=== PATIENT | female | born 1955 | race Caucasian/White ===

== ENCOUNTER 2016-09-09 21:51 | Emergency (ER) | payer MEDICARE, MEDICAID ==
[2016-09-09] MEDS ORDERED: IOPAMIDOL-300 100 ML VIAL IVP ONE (23:28)
== END 2016-09-10 00:06 | disposition home or self-care (01) ==
DX: K59.00 Constipation, unspecified (principal); I10 Essential (primary) hypertension; E11.9 Type 2 diabetes mellitus without complications; E03.9 Hypothyroidism, unspecified; Z85.3 Personal history of malignant neoplasm of breast; M06.9 Rheumatoid arthritis, unspecified; M19.90 Unspecified osteoarthritis, unspecified site; Z79.82 Long term (current) use of aspirin
CPT/HCPCS: 36415; 74177; 80053; 81001; 83690; 85025; 87086; 99283; 99284; Q9967

== ENCOUNTER 2016-10-09 11:36 | Outpatient (CLI) | payer MEDICARE, MEDICAID ==
--- NOTE | 2016-10-09 20:03 | XRAY Report ---
BILATERAL KNEES, THREE-VIEW OF EACH KNEE: 10/09/2016 CLINICAL HISTORY: Knee pain. FINDINGS: LEFT KNEE: Prominent medial periarticular spur is noted emanating from the tibial plateau. Mild spu rring is noted at the tibial spines. Moderate degree of medial joint space narrowing is noted. Mild varus deformity is seen. Examination is negative for knee effusion. RIGHT KNEE: Prominent spur is seen emanating from the medial aspect of the tibial plateau. Mild spu rring is noted at the tibial spines. Mild spurring is noted along the posterior aspect of the patell a and anterior superior aspect of the patella. Moderate degree of joint space narrowing is noted wit h mild varus deformity. Small bony ossicle is noted in the posterior soft tissues of the right knee measuring 0.6 cm. This most likely represents a normal accessory ossicle. Examination is negative for knee effusion. IMPRESSION: 1. OSTEOARTHRITIS OF THE LEFT KNEE IS NOTED PRIMARILY AFFECTING THE MEDIAL FEMORAL COMPARTMENT. 2. OSTEOARTHRITIS OF THE RIGHT KNEE, ESPECIALLY AFFECTING THE MEDIAL FEMORAL COMPARTMENT. ASSOCIATE D MILD VARUS DEFORMITY IS NOTED. JOB #: [id number] EXT JOB #:[id number]
--- NOTE | 2016-10-13 08:38 | XRAY Report ---
EXAM: LUMBOSACRAL SPINE RADIOGRAPHY EXAM DATE: 10/09/2016 12:09 PM. CLINICAL HISTORY: Lumbar disk disease. COMPARISONS: CT scan of the abdomen and pelvis 09/09/2016. MRI of the lumbar spine 05/04/2014. Lumbar spine plain films 11/01/2012. TECHNIQUE: 5 views. FINDINGS: Alignment: Mild, 13 degree, levorotatory scoliosis is seen centered at L3. Mild left lateral subluxat ion of L3 is seen in relation to L4. Grade 1, 6 mm, spondylolisthesis is seen at L5-S1. Bones: Five pki-wid-hpyugps lumbar vertebral bodies are present. No fractures or bone lesions. Disks: Moderate loss of disk space height and vacuum cleft phenomenon is noted at L3-L4 and L4-L5. Pa tchy osteophyte formation is noted. Facets: Hypertrophic degenerative facet change is seen in the lower lumbar spine. This predominates o n the right at L5-S1 with moderate change on the left at L5-S1 and bilaterally at L4-L5. Sacroiliac Joints: Unremarkable. Soft Tissues: Moderate amount of gas and stool is seen throughout the colon. IMPRESSION: 1. Levorotatory scoliosis of the lower lumbar spine. Mild left lateral subluxation is seen at L3-L4. Mild spondylolisthesis is seen at L5-S1. 2. Moderate to marked degenerative facet change at L5-S1. 3. Degenerative disk and facet change at L4-L5. 4. Degenerative disk change at L3-L4. [facility] Referring Provider Line: [phone] SITE ID: [id number]
== END 2016-10-09 11:37 | disposition home or self-care (01) ==
LOC: DI.S 11:36
PROVIDERS: ATTEND Nurse Practitioner Family
DX: M51.36 Other intervertebral disc degeneration, lumbar region (principal); M47.896 Other spondylosis, lumbar region; M43.17 Spondylolisthesis, lumbosacral region; M47.897 Other spondylosis, lumbosacral region; M17.0 Bilateral primary osteoarthritis of knee
CPT/HCPCS: 72110

== ENCOUNTER 2016-10-16 16:36 | Outpatient (CLI) | payer MEDICARE, MEDICAID ==
[2016-10-16 13:36] LABS: ALBUMIN/GLOBULIN RATIO 1.4 (1.0-2.2); BILIRUBIN,TOTAL 0.5 mg/dL (0.2-1.0); BUN - BLOOD UREA NITROGEN 12 mg/dL (6-20); CALCIUM 9.8 mg/dL (8.5-10.3); CARBON DIOXIDE - CO2 27 mmol/L (21-32); CHLORIDE 100 mmol/L (101-111); CHOL/HDL RATIO 2.8 (<4.4); CHOLESTEROL 247 mg/dL; CREATININE 0.9 mg/dL (0.4-1.0); GFR - MDRD 64 (>89); GLUCOSE 130 mg/dL (70-100); HDL CHOLESTEROL 88 mg/dL; LDL/HDL RATIO 1.1 (<4.4); POTASSIUM 4.2 mmol/L (3.5-5.0); SODIUM 137 mmol/L (135-145); TOTAL PROTEIN 7.4 g/dL (6.7-8.2); TRIGLYCERIDES 290 mg/dL; VLDL CHOLESTEROL 58 mg/dL
[2016-10-16 14:01] LABS: HEMOGLOBIN A1C 0.66 g/dL
== END 2016-10-16 16:37 | disposition home or self-care (01) ==
LOC: LAB.WCP 16:36
PROVIDERS: ATTEND Nurse Practitioner Family
DX: E11.9 Type 2 diabetes mellitus without complications (principal); Z13.220 Encounter for screening for lipoid disorders
CPT/HCPCS: 36415; 80053; 80061; 82043; 82570; 83036; 84443

== ENCOUNTER 2016-11-19 10:41 | Outpatient (CLI) | payer MEDICARE, MEDICAID ==
--- NOTE | 2016-11-19 13:42 | Mammography Report ---
DIGITAL DIAGNOSTIC BILATERAL MAMMOGRAM: 11/19/2016 CLINICAL INDICATION: A 61-year-old with personal history of right breast cancer, status post lumpecto my and radiation therapy, family history of breast cancer. COMPARISON: Pre-surgical images of 11/30/2014, 11/15/2014, 09/12/2010, 06/28/2009, 06/10/2008, 2006. TECHNIQUE: Bilateral CC and MLO views, right true lateral and spot magnification views. FINDINGS: The breasts again demonstrate scattered fibroglandular densities bilaterally. Coarse and p unctate, typically benign calcifications are present. Postoperative and posttreatment changes are not ed in the right upper outer quadrant. No suspicious masses, clustered microcalcifications, or regions of architectural distortion are identified. IMPRESSION: BENIGN FINDINGS. RECOMMENDATION: ROUTINE ANNUAL MAMMOGRAPHY UNLESS OTHERWISE CLINICALLY INDICATED. BIRADS CATEGORY 2-BENIGN FINDINGS. STANDARD QUALIFYING STATEMENTS 1. This examination was reviewed with the aid of Computer-Aided Detection (CAD). 2. A negative or benign imaging report should not delay biopsy if clinically suspicious findings are present. Consider surgical consultation if warranted. More than 5% of cancers are not identified by i maging. 3. Dense breasts may obscure an underlying neoplasm. JOB #: [id number] EXT JOB #:[id number]
== END 2016-11-19 10:42 | disposition home or self-care (01) ==
LOC: DI 10:41
PROVIDERS: ATTEND Nurse Practitioner Family
DX: C50.411 Malignant neoplasm of upper-outer quadrant of right female breast (principal); Z80.3 Family history of malignant neoplasm of breast
CPT/HCPCS: 77066

== ENCOUNTER 2017-01-28 15:25 | Emergency (ER) | payer MEDICARE, MEDICAID ==
--- NOTE | 2017-01-28 15:57 | ED Physician Documentation ---
History of Present Illness - Stated complaint Stated Complaint: DIZZINESS - Chief complaint Chief Complaint: General - History obtained from History obtained from: Patient, Friend - History of Present Illness Timing: Today Pain level max: 6 Pain level now: 6 Improved by: rest Worsened by: movement - Treatment prior to arrival Treatment prior to arrival: 61-year-old female who presents to the emergency department after occupational therapy and her home health nurse visit her today, found her slurring her speech and off-balance. She states that she tripped and fell in the shower as well, striking her head injuring her left shoulder and left hip. Her neighbor that is with her states that she often has slurred speech and trouble with balance after taking her morning medications. She states that she goes to bed at approximately 9 PM each night, wakes up at 7 then takes her medications at 9 AM and falls back asleep until 1 or so. Did not have any focal neurological deficits this morning by history. Does not have a history of stroke. Did have a laminectomy at the end of November. She also states that she has had difficulty getting to the bathroom at night, though recently this is improved and she has not had any episodes of urge incontinence with her urine. Review of Systems Ten Systems: 10 systems reviewed and negative Constitutional: denies: Fever, Chills Nose: denies: Rhinorrhea / runny nose, Congestion Throat: denies: Sore throat Cardiac: denies: Chest pain / pressure, Palpitations Respiratory: denies: Dyspnea, Cough, Wheezing GI: denies: Abdominal Pain, Nausea, Vomiting, Diarrhea Skin: denies: Rash Musculoskeletal: denies: Neck pain, Back pain Neurologic: denies: Focal weakness, Numbness, Seizure, Confused, Altered mental status PD PAST MEDICAL HISTORY - Past Medical History Cardiovascular: Hypertension Respiratory: None Neuro: None Endocrine/Autoimmune: Type 2 diabetes, HyPOthyroidism GI: None 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 : None HEENT: None Psych: Depression, Anxiety, Bipolar disorder, Schizophrenia Musculoskeletal: Osteoarthritis, Rheumatoid arthritis, Scoliosis, Chronic back pain Derm: None - Past Surgical History Past Surgical History: Yes Ortho: Arthroscopic surgery, Spine surgery /CLINICAL SUPERVISOR: Tubal ligation - Present Medications Home Medications: Ambulatory Orders Medication Instructions Recorded Confirmed Aspirin [Aspir 81] 81 mg PO DAILY 09/17/12 01/28/17 Metformin HCl [Fortamet] 500 mg PO BID 11/01/12 01/28/17 Cetirizine [ZyrTEC] 10 mg PO DAILY 09/20/15 01/28/17 Indomethacin 50 mg PO TID PRN 09/20/15 01/28/17 Sumatriptan [Imitrex] 25 mg PO DAILY PRN 09/20/15 01/28/17 cloNIDine [Catapres] 0.1 mg PO BID 09/20/15 01/28/17 tiZANidine [Zanaflex] 1 tab PO TID PRN 09/20/15 01/28/17 Ziprasidone HCl [Geodon] 320 mg PO DAILY PM 09/09/16 01/28/17 lamoTRIgine [LaMICtal] 200 mg PO DAILY 09/09/16 01/28/17 Docusate Sodium 250Mg Capsule 250 mg PO DAILY #30 capsule 09/10/16 01/28/17 [Colace 250Mg Capsule] Senna [Senokot] 8.6 mg PO DAILY #30 tablet 09/10/16 01/28/17 Cephalexin [Keflex] 500 mg PO Q6H #28 capsule 01/28/17 Gabapentin 300 mg PO TID 01/28/17 01/28/17 oxyCODONE [Roxicodone] 5 mg PO BID 01/28/17 01/28/17 - Allergies Allergies/Adverse Reactions: Allergies Allergy/AdvReac Type Severity Reaction Status Date / Time quetiapine fumarate * Allergy Severe Anxiety Verified 09/09/16 22:02 [From Seroquel] thioridazine HCl * Allergy Unknown Cramps Verified 09/09/16 22:02 [From Mellaril] bupropion HCl * Allergy Unknown Verified 09/09/16 22:02 [From Wellbutrin] haloperidol [From Haldol] AdvReac Mild Anxiety Verified 09/09/16 22:02 haloperidol lactate * AdvReac Mild Anxiety Verified 09/09/16 22:02 [From Haldol] - Social History Does the pt smoke?: No Smoking Status: Never smoker Does the pt drink ETOH?: No Does the pt have substance abuse?: No - Immunizations Immunizations are current?: Yes Immunizations: TDAP >10years/unknown - POLST Patient has POLST: No PD ED PE NORMAL - Vitals Vital signs reviewed: Yes - General General: Alert and oriented X 3, No acute distress, Well developed/nourished - HEENT HEENT: Atraumatic, PERRL, EOMI, Ears normal, Moist mucous membranes, Pharynx benign - Neck Neck: Supple, no meningeal sign, No bony TTP - Cardiac Cardiac: RRR, Strong equal pulses - Respiratory Respiratory: No respiratory distress, Clear bilaterally - Abdomen Abdomen: Soft, Non tender, Non distended - Back Back: No spinal TTP - Derm Derm: Warm and dry - Extremities Extremities: Other (L shoulder mild diffuse TTP. FROM present. NVI including axillary nerve. TTP over the L hip. limited ROM 2/2 pain. 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, No motor deficit, No sensory deficit, Normal speech, Other (NIHSS 0 at 1600) - Psych Psych: Normal mood, Normal affect Results - Vitals Vitals: Vital Signs - 24 hr 01/28/17 01/28/17 15:28 17:47 Temperature 36.6 C Heart Rate 77 67 Respiratory 18 16 Rate Blood Pressure 120/78 109/57 L O2 Saturation 98 96 Oxygen O2 Source Room air - EKG (time done) 1548 Rate: Rate (enter#) (71) Rhythm: NSR [place]: Normal Intervals: Normal IN QRS: Normal Ischemia: Normal ST segments Computer interpretation: Agree with computer - Labs Labs: Laboratory Tests 01/28/17 01/28/17 01/28/17 16:11 16:11 16:58 WBC 6.0 RBC 3.55 L Hgb 10.9 L Hct 32.0 L MCV 90.1 MCH 30.6 MCHC 33.9 RDW 13.4 Plt Count 222 MPV 7.7 L Neut # 3.8 Lymph # 1.6 [place] # 0.5 Eos # 0.1 Baso # 0.0 Absolute Nucleated RBC 0.00 Nucleated RBCs 0.0 Sodium 133 L Potassium 4.0 Chloride 97 L Carbon Dioxide 27 Anion Gap 9.0 BUN 11 Creatinine 0.7 Estimated GFR (MDRD) 86 L Glucose 206 H Calcium 9.1 Total Bilirubin 0.3 AST 24 ALT 17 Alkaline Phosphatase 66 Total Protein 7.0 Albumin 3.6 Globulin 3.4 Albumin/Globulin Ratio 1.1 Lipase 31 Urine Color YELLOW Urine Clarity HAZY Urine pH 6.0 Ur Specific [place] <=1.005 Urine Protein NEGATIVE Urine Glucose (UA) NEGATIVE Urine Ketones NEGATIVE Urine Occult Blood NEGATIVE Urine Nitrite NEGATIVE Urine Bilirubin NEGATIVE Urine Urobilinogen 0.2 (NORMAL) Ur Leukocyte Esterase MODERATE H Urine RBC 0-5 Urine WBC >25 H Ur Squamous Epith Cells FEW Squamous Urine Bacteria Moderate H Ur Microscopic Review INDICATED Urine Culture Comments INDICATED - Rads (name of study) L shoulder xray Radiology: Prelim report reviewed, EMP read contemporaneously, See rad report ( No acute abnormality) L hip xray Radiology: Prelim report reviewed, EMP read contemporaneously, See rad report ( No acute abnormality) head CT Radiology: Prelim report reviewed, EMP read contemporaneously, See rad report ( No acute abnormality) PD MEDICAL DECISION MAKING - ED course Complexity details: reviewed results, re-evaluated patient, considered differential, d/w patient ED course: Patient is a 61-year-old female who presents to the emergency department with what sounds like increased drowsiness since taking all of her medications in the morning including narcotic pain medication, muscle relaxants, antipsychotic medications. She is found to have UTI and given Rocephin for this and will start on antibiotics for home. No acute findings on x-ray or CT scan. History is not consistent with a CVA. We will have her follow-up with her doctor to reevaluate her medications and the timing of her medications to see if this can be improved upon or perhaps she can stop some of the medications. She is very well-appearing, nontoxic. Afebrile. Tolerating p.o. without difficulty and ambulating well in the emergency department. We will also have her utilize her walker at home as she currently is only using a cane. Patient counseled regarding signs and symptoms for which I believe and urgent re-evaluation would be necessary. Patient with good understanding of and agreement to plan and is comfortable going home at this time This document was made in part using voice recognition software. While efforts are made to proofread this document, sound alike and grammatical errors may occur. Departure - Departure Disposition: Home, Self Care Clinical Impression: Urinary tract infection Qualifiers: Urinary tract infection type: acute cystitis Hematuria presence: without hematuria Qualified Code(s): N30.00 - Acute cystitis without hematuria Medication reaction Qualifiers: Encounter type: initial encounter Qualified Code(s): T88.7XXA - Unspecified adverse effect of drug or medicament, initial encounter Condition: Good Instructions: ED UTI Cystitis Female Follow-Up: Ashley Lazo ARNP [Primary Care Provider] - Within 1 week Prescriptions: Cephalexin [Keflex] 500 mg PO Q6H #28 capsule Comments: Take all antibiotics until gone. Return if you worsen. You should talk to your doctor about all your medications as they appear to be making you very drowsy in the morning. Discharge Date/Time: 01/28/17 17:53
[2017-01-28 16:22] LABS: BASOPHILS % (AUTO) 0.4 %; EOSINOPHILS # (AUTO) 0.1 10^3/uL (0.0-0.7); EOSINOPHILS % (AUTO) 2.2 %; HGB - HEMOGLOBIN 10.9 g/dL (12.0-16.0); LYMPHOCYTES # (AUTO) 1.6 10^3/uL (1.5-3.5); LYMPHOCYTES % (AUTO) 26.8 %; MEAN CORPUSCULAR HEMOGLOBIN 30.6 pg (27.0-31.0); MEAN CORPUSCULAR HGB CONC 33.9 g/dL (32.0-36.0); MEAN CORPUSCULAR VOLUME 90.1 fL (81.0-99.0); MEAN PLATELET VOLUME 7.7 fL (7.9-10.8); MONOCYTES # (AUTO) 0.5 10^3/uL (0.0-1.0); NEUTROPHILS # (AUTO) 3.8 10^3/uL (1.5-6.6); NEUTROPHILS % (AUTO) 62.6 %; RED BLOOD COUNT 3.55 10^6/uL (4.20-5.40); RED CELL DISTRIBUTION WIDTH 13.4 % (12.0-15.0)
[2017-01-28 16:34] LABS: ALBUMIN/GLOBULIN RATIO 1.1 (1.0-2.2); BILIRUBIN,TOTAL 0.3 mg/dL (0.2-1.0); CALCIUM 9.1 mg/dL (8.5-10.3); CREATININE 0.7 mg/dL (0.4-1.0)
--- NOTE | 2017-01-28 16:46 | CT Preliminary Report ---
Exam: CT Head W/O IMPRESSION: No acute or focal intracranial abnormality seen. [facility] SITE ID: [id number]
--- NOTE | 2017-01-28 16:49 | CT Report ---
EXAM: CT HEAD EXAM DATE: 01/28/2017 04:29 PM. CLINICAL HISTORY: Slurred speech, fall, head injury. COMPARISON: Head CT 03/08/2013. TECHNIQUE: Multiaxial CT images were obtained from the foramen magnum to the vertex. IV contrast: Non e. Reformats: Coronal. In accordance with CT protocol optimization, one or more of the following dose reduction techniques w ere utilized for this exam: automated exposure control, adjustment of mA and/or KV based on patient s ize, or use of iterative reconstructive technique. FINDINGS: Parenchyma: No intraparenchymal hemorrhage. No evidence of mass, midline shift, or CT findings of inf arction. Ceballos-white differentiation is distinct. Extraaxial Spaces: Normal for age. No subdural or epidural collections identified. Ventricles: Normal in size and position. Sinuses: Imaged paranasal sinuses, orbits, and mastoids show no significant abnormality. Bones: No evidence of fracture or calvarial defect. IMPRESSION: No acute or focal intracranial abnormality seen. [facility] Referring Provider Line: [phone] SITE ID: [id number]
[2017-01-28 17:08] LABS: BILIRUBIN,URINE NEGATIVE (NEGATIVE)
[2017-01-28 17:09] LABS: UA w/ MICROSCOPIC CHARGE YES
--- NOTE | 2017-01-28 17:12 | XRAY Preliminary Report ---
Exam: XR Shoulder 3 View LT IMPRESSION: Normal shoulder radiography. [facility] SITE ID: [id number]
--- NOTE | 2017-01-28 17:14 | XRAY Preliminary Report ---
Exam: XR Hip w/Pelvis 2-3V LT IMPRESSION: No acute findings. [facility] SITE ID: [id number]
[2017-01-28 17:15] LABS: UR CULTURE IF IND INDICATED; WBC,URINE >25 /HPF (0-5)
--- NOTE | 2017-01-28 17:15 | XRAY Report ---
EXAM: LEFT SHOULDER RADIOGRAPHY EXAM DATE: 01/28/2017 04:56 PM. CLINICAL HISTORY: Fall, left shoulder injury. COMPARISON: None. TECHNIQUE: 3 views. FINDINGS: Bones: Normal. No fracture or bone lesion. Joints: The glenohumeral and acromioclavicular joints are normal. Soft tissues: The visualized hemithorax is unremarkable. No soft tissue swelling. IMPRESSION: Normal shoulder radiography. [facility] Referring Provider Line: [phone] SITE ID: [id number]
--- NOTE | 2017-01-28 17:17 | XRAY Report ---
EXAM: LEFT HIP AND PELVIS RADIOGRAPHY EXAM DATE: 01/28/2017 04:56 PM. HISTORY: Fall, L hip injury. COMPARISONS: None. TECHNIQUE: 1 view of the pelvis and 1 view of the hip. FINDINGS: Bones: No evidence for acute fracture Joints: Mild degenerative joint disease in the bilateral hip, pubis symphysis, and sacroiliac joints . No dislocation. Lumbosacral hardware. Soft Tissues: No acute findings. IMPRESSION: No acute findings. [facility] Referring Provider Line: [phone] SITE ID: [id number]
[2017-01-28] MEDS ORDERED: cefTRIAXone 1 GM VIAL IM STA (17:23)
[2017-01-28] MEDS ORDERED: LIDOCAINE 1% 2 ML VIAL ONE (17:34)
[2017-01-28] MEDS ORDERED: cefTRIAXone 1 GM VIAL ONE (17:34)
[2017-01-28 17:47] VITALS: BP 109/57
== END 2017-01-28 17:53 | disposition home or self-care (01) ==
LOC: ED 15:25
DX: N30.00 Acute cystitis without hematuria (principal); T50.905A Adverse effect of unspecified drugs, medicaments and biological substances, initial encounter; I10 Essential (primary) hypertension; E11.9 Type 2 diabetes mellitus without complications; E03.9 Hypothyroidism, unspecified; M06.9 Rheumatoid arthritis, unspecified; Z85.3 Personal history of malignant neoplasm of breast; Z79.82 Long term (current) use of aspirin
CPT/HCPCS: 36415; 70450; 80053; 81001; 81003; 83690; 85025; 87086; 93005; 96372; 99283; 99285

== ENCOUNTER 2017-05-17 13:15 | Outpatient (CLI) | payer MEDICARE, MEDICAID ==
[2017-05-17 19:23] LABS: CALCIUM 9.3 mg/dL (8.5-10.3); CREATININE 0.7 mg/dL (0.4-1.0)
[2017-05-17 19:30] LABS: HB2 TOTAL 13.7 g/dL; HEMOGLOBIN A1C 0.79 g/dL; HEMOGLOBIN A1C % 7.4 % (4.6-6.2)
== END 2017-05-17 13:16 | disposition home or self-care (01) ==
LOC: LAB.WCP 13:15
PROVIDERS: ATTEND Family Medicine
DX: E11.9 Type 2 diabetes mellitus without complications (principal)
CPT/HCPCS: 36415; 80048; 83036

== ENCOUNTER 2017-07-07 17:31 | Emergency (ER) | payer MEDICARE, MEDICAID ==
[2017-07-07 17:47] VITALS: BP 151/77
--- NOTE | 2017-07-07 18:06 | ED Physician Documentation ---
PD HPI SKIN - Stated complaint Stated Complaint: BREAST INFECTION - Chief complaint Chief Complaint: Wound - History obtained from History obtained from: Patient - History of Present Illness Timing - onset: How many months ago (1) Timing - duration: Months (1) Timing - details: Gradual onset Pain level max: 4 Pain level now: 3 Location: Other (Underneath her breasts bilaterally) Quality / character: Itchy, Painful Improved by: Other (States was prescribed nystatin powder, but it caused burning so she stopped it.) Worsened by (comment): COMMENT (Nothing) Associated symptoms: No: Fever Contributing factors: No: Exposed to medication, Exposed to food, Exposed to soap / lotion, Exposed to Poison jake/oak, Insect bite /sting Similar symptoms before: Diagnosis (Candidal infection of the breast) Recently seen: Clinic (As she did not tolerate the nystatin powder, she was changed to oral Flagyl. She only took one dose. 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: Breast cancer : None HEENT: None Psych: Depression, Anxiety, Bipolar disorder, Schizophrenia Musculoskeletal: Osteoarthritis, Rheumatoid arthritis, Scoliosis, Chronic back pain Derm: None - Past Surgical History Past Surgical History: Yes Ortho: Arthroscopic surgery, Spine surgery /WICK TENDER: Tubal ligation - Present Medications Home Medications: Ambulatory Orders Medication Instructions Recorded Confirmed Metformin HCl [Fortamet] 500 mg PO BID 11/01/12 01/28/17 Cetirizine [ZyrTEC] 10 mg PO DAILY 09/20/15 01/28/17 Indomethacin 50 mg PO TID PRN 09/20/15 01/28/17 SUMAtriptan [Imitrex] 25 mg PO DAILY PRN 09/20/15 01/28/17 cloNIDine [Catapres] 0.1 mg PO BID 09/20/15 01/28/17 tiZANidine [Zanaflex] 1 tab PO TID PRN 09/20/15 01/28/17 Ziprasidone HCl [Geodon] 320 mg PO DAILY PM 09/09/16 01/28/17 lamoTRIgine [LaMICtal] 200 mg PO DAILY 09/09/16 01/28/17 Gabapentin 300 mg PO TID 01/28/17 01/28/17 Itraconazole 1 applic TOP BID #1 powder 07/07/17 - Allergies Allergies/Adverse Reactions: Allergies Allergy/AdvReac Type Severity Reaction Status Date / Time quetiapine fumarate * Allergy Severe Anxiety Verified 07/07/17 17:47 [From Seroquel] thioridazine HCl * Allergy Unknown Cramps Verified 07/07/17 17:47 [From Mellaril] bupropion HCl * Allergy Unknown Verified 07/07/17 17:47 [From Wellbutrin] haloperidol [From Haldol] AdvReac Mild Anxiety Verified 07/07/17 17:47 haloperidol lactate * AdvReac Mild Anxiety Verified 07/07/17 17:47 [From Haldol] - Social History Does the pt smoke?: No Smoking Status: Never smoker Does the pt drink ETOH?: No Does the pt have substance abuse?: No - Immunizations Immunizations are current?: Yes Immunizations: TDAP >10years/unknown - POLST Patient has POLST: No PD ED PE NORMAL - Vitals Vital signs reviewed: Yes - General General: Alert and oriented X 3, No acute distress - Derm Derm: Warm and dry, Other (Erythematous, swollen areas underneath the bilateral breasts. Well demarcated edges with satellite lesions.) - Neuro Neuro: Alert and oriented X 3 Results - Vitals Vitals: Vital Signs - 24 hr 07/07/17 17:44 Temperature 36.5 C Heart Rate 86 Respiratory 16 Rate Blood Pressure 151/77 H O2 Saturation 95 Oxygen O2 Source Room air PD MEDICAL DECISION MAKING - ED course Complexity details: considered differential, d/w patient ED course: Patient is a 62-year-old female with an apparent candidal infection under the bilateral breasts. We will trial her on itraconazole powder and see how she progresses. Informed her that this may take several weeks of treatment to resolve. Recommend that she dry the breasts well including using a blow dryer after showers. Will have her follow-up closely with her doctor for further care. Patient counseled regarding signs and symptoms for which I believe and urgent re-evaluation would be necessary. Patient with good understanding of and agreement to plan and is comfortable going home at this time This document was made in part using voice recognition software. While efforts are made to proofread this document, sound alike and grammatical errors may occur. Departure - Departure Disposition: 01 Home, Self Care Clinical Impression: Candidiasis of breast Condition: Good Instructions: ED Candidiasis Cutaneous Follow-Up: Ry Paredes MD [Primary Care Provider] - Within 1 week Prescriptions: Itraconazole 1 applic TOP BID #1 powder Comments: Return if you worsen. This may take a few weeks to improve.
== END 2017-07-07 18:18 | disposition home or self-care (01) ==
LOC: ED 17:31
DX: B37.89 Other sites of candidiasis (principal); E11.9 Type 2 diabetes mellitus without complications; Z79.84 Long term (current) use of oral hypoglycemic drugs; I10 Essential (primary) hypertension; C50.919 Malignant neoplasm of unspecified site of unspecified female breast; E03.9 Hypothyroidism, unspecified
CPT/HCPCS: 99283